=== PATIENT | male | born 1970 | race Caucasian/White ===

== ENCOUNTER 2017-08-07 16:44 | Emergency (ER) | payer SELFPAY ==
[~2017-08-07] VITALS: Ht 175.3 cm; Wt 93.0 kg
[2017-08-07] MEDS ORDERED: HYDROmorphone 2 MG/ML VIAL ONE (17:59)
[2017-08-07] MEDS ORDERED: HYDROmorphone 2 MG/ML VIAL IV ONE (18:15)
--- NOTE | 2017-08-07 18:16 | PHYS DOC ---
Past Medical History Past Medical History: Other Additional Past Medical Histor: heart murmur Past Surgical History: Other Additional Past Surgical Histo: ankle,hernia Alcohol Use: Occasionally Drug Use: None Adult General Chief Complaint Chief Complaint: PUNCTURE WOUND HPI HPI Patient is a 46 year old male who presents with puncture wound to his left hand. He is right-hand dominant was using a electric drill. He had a Gillis drill bit and he was using his left hand to support a board he slipped and the drill went into his left hand. It struck on the palmar aspect at the thumb side. He states he's had continued pain and has pain moving his thumb. This happened at 1545 PM. His tetanus is up to date was 4 years ago. Does not have a personal physician he states. This was an injury occurring in the home. Review of Systems Review of Systems Musculoskeletal: POS hand pain Integument: POS wound Neurologic: No numbness Current Medications Current Medications Current Medications Medications (Trade) Dose Ordered Sig/Jose Alberto Start Time Stop Time Status Last Admin Dose Admin Hydromorphone HCl (Dilaudid) 1 mg 1X ONCE 08/07/17 18:15 08/07/17 18:16 DC 08/07/17 18:11 1 MG Lidocaine HCl (Xylocaine-Mpf 1% Vial) 2 ml 1X ONCE 08/07/17 18:45 08/07/17 18:54 DC Lidocaine/Sodium Bicarbonate (Buffered Lidocaine 1%) 20 ml 1X ONCE 08/07/17 19:00 08/07/17 19:01 DC 08/07/17 18:55 20 ML Allergies Allergies Allergies Coded Allergies Type Severity Reaction Last Updated Verified Fish Containing Products Allergy Intermediate swelling 01/06/15 No aspirin Allergy Intermediate swelling 01/06/15 No shellfish derived Allergy Intermediate swelling 01/06/15 No Physical Exam Physical Exam Constitutional: Well developed, well nourished, no acute distress, non-toxic appearance. Skin: Puncture wound to left palm on the thenar eminence. This is on the proximal hand portion. Extremities: Left hand: There is a puncture wound, no active bleeding to the thenar eminence. He has pain around the thenar eminence with some slight swelling. There is no discernible foreign body palpable or visually seen. He has pain with motion of the thumb. He is neurovascularly intact distally. Normal capillary refill. Normal sensation. He does have movement intact. Neurologic: Alert and oriented X 3, normal motor function, normal sensory function, no focal deficits noted. Psychologic: Affect normal, judgement normal, mood normal. Current Patient Data Vital Signs Vital Signs Date Time Temp Pulse Resp B/P (MAP) Pulse Ox O2 Delivery O2 Flow Rate FiO2 08/07/17 19:33 94 20 134/63 (86) 99 Room Air 08/07/17 16:51 98.0 98.0 Radiology/Procedures Radiology/Procedures Left hand xray interpreted by myself at 1900 PM: no fracture; no FB seen. Course & Med Decision Making Course & Med Decision Making Vital patient. Informed patient that he is high risk for injury. He Needs Follow -Up. Please See Procedure Note regarding Wound Care. Dragon Disclaimer Dragon Disclaimer This electronic medical record was generated, in whole or in part, using a voice recognition dictation system. Departure Departure Impression: Primary Impression: Puncture wound of hand, left Disposition: 01 HOME, SELF-CARE Condition: STABLE Referrals: NO PCP (PCP) Patient Instructions: Puncture Wound Additional Instructions: THESE INJURIES ARE HIGH RISK FOR RETAINED FOREIGN BODY THAT IS TOO SMALL OR BURIED DEEP FOR US TO SEE IN THE ER. YOU NEED CLOSE FOLLOW UP. MONITOR THE SKIN ; IF YOU DEVELOP REDNESS; DRAINAGE OR INCREASE PAIN YOU MUST BE SEEN IMMEDIATELY. LACK OF FOLLOW UP CAN RESULT IN PERMANENT HAND DAMAGE AND LIFELONG DISABILITY. Scripts Doxycycline Hyclate (DOXYCYCLINE HYCLATE) 100 Mg Capsule 1 CAP PO BID, #14 CAP Prov: RAMIRO MOROCHO MD 08/07/17 PROCEDURE Procedure Laceration repair: Consent obtained. Wound prepped and draped in a sterile manner. 1% lidocaine; plain and buffered used to anesthetize the wound. Wound explored. No foreign body noted. Wound irrigated well and well cleansed. After anesthetizing the wound patient was able to move his thumb freely without difficulty. No suture as small puncture wound. Problem Qualifiers Primary Impression: Puncture wound of hand, left Encounter type: initial encounter Foreign body presence: without foreign body Qualified Codes: S61.432A - Puncture wound without foreign body of left hand, initial encounter RAMIRO MOROCHO MD Aug 07, 2017 18:16
[2017-08-07] MEDS ORDERED: LIDOCAINE 1% PF 2 ML VIAL. INJ ONE (18:45)
[2017-08-07] MEDS ORDERED: LIDOCAINE 1% / SOD BICARB 8.4% 20 ML VIAL. IJ ONE ×2 (18:47→19:00)
[2017-08-07] MEDS ORDERED: DOXY100C2 PO (19:24)
[2017-08-07 19:33] VITALS: BP 134/63
--- NOTE | 2017-08-08 08:19 | RAD ---
Indication: Left hand pain after injury today. Power drill puncture in the region of the first metacarpal. Technique: 3 views of the left hand are submitted for review. Marker was placed at the area of concern. Findings: There is soft tissue swelling in the first digit. There is no fracture or dislocation. There is no definite radiopaque foreign body. Impression: Negative for radiopaque foreign body.
== END 2017-08-07 19:45 | disposition home or self-care (01) ==
LOC: ER 16:44
DX: S61.432A Puncture wound without foreign body of left hand, initial encounter (principal); Z88.6 Allergy status to analgesic agent; Z91.013 Allergy to seafood; W29.8XXA Contact with other powered hand tools and household machinery, initial encounter; Y93.89 Activity, other specified; Y99.8 Other external cause status; Y92.89 Other specified places as the place of occurrence of the external cause
CPT/HCPCS: 73130; 96372; 96374; 99284; J1170

== ENCOUNTER 2020-08-30 16:03 | Emergency (ER) | payer OTHER ==
[~2020-08-30] VITALS: Ht 175.3 cm; Wt 105.0 kg
[~2020-08-30 16:03] MED LIST: BENZ100C PO; DOXY100C2 PO
[2020-08-30] MEDS ORDERED: IV NORMAL SALINE 1000ML BAG 1,000 ML IV SCH (16:29)
[2020-08-30] MEDS ORDERED: MORPHINE SULFATE 4 MG/ML VIAL. IV/SQ PRN (16:30)
[2020-08-30] MEDS ORDERED: ONDANSETRON PF 4 MG/2 ML VIAL. IVP ONE (16:30)
[2020-08-30] MEDS ORDERED: 0.9 % SODIUM CHLORIDE 10 ML DISP.SYRIN. IV PRN (16:30)
[2020-08-30 16:38] LABS: BASO # 0.1 x10^3/uL (0.0-0.2); BASO % 1 % (0-3); EOS # 0.1 x10^3/uL (0.0-0.7); EOS % 1 % (0-3); HEMATOCRIT 46.5 % (39.0-53.0); HEMOGLOBIN 16.1 g/dL (13.0-17.5); LYMPH # 2.2 x10^3/uL (1.0-4.8); LYMPH % 21 % (24-48); MEAN CORPUSCULAR HEMOGLOBIN 30 pg (25-35); MEAN CORPUSCULAR HGB CONC 35 g/dL (31-37); MEAN CORPUSCULAR VOLUME 87 fL (79-100); MONO # 0.8 x10^3/uL (0.0-1.1); MONO % 7 % (0-9); NEUT # 7.4 x10^3/uL (1.8-7.7); NEUT % 70 % (31-73); PLATELET COUNT 261 x10^3/uL (140-400); RED BLOOD COUNT 5.36 x10^6/uL (4.30-5.70); WHITE BLOOD COUNT 10.6 x10^3/uL (4.0-11.0)
[2020-08-30 16:47] LABS: PROTHROMBIN TIME PATIENT 12.8 SEC (11.7-14.0)
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
[2020-08-30 16:59] LABS: CALCIUM 9.3 mg/dL (8.5-10.1); CREATININE 1.5 mg/dL (0.7-1.3); GFR 50.2; POTASSIUM 4.5 mmol/L (3.5-5.1)
[2020-08-30 17:10] LABS: ALBUMIN 3.9 g/dL (3.4-5.0); ALBUMIN/GLOBULIN RATIO 1.1 (1.0-1.7); TOTAL BILIRUBIN 0.3 mg/dL (0.2-1.0); TOTAL PROTEIN 7.5 g/dL (6.4-8.2)
[2020-08-30] MEDS ORDERED: IOHEXOL 350 MG/ML 100 ML VIAL. IV ONE (17:15)
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
[2020-08-30 18:35] LABS: BARBITURATES NEG (NEG); BENZODIAZEPINES NEG (NEG); CANNABINOIDS NEG (NEG); COCAINE NEG (NEG); METHADONE NEG (NEG); OPIATES POS (NEG); PHENCYCLIDINE NEG (NEG)
[2020-08-30 18:37] LABS: BILIRUBIN,URINE NEGATIVE (NEG); CLARITY,URINE CLEAR; COLOR,URINE YELLOW; NITRITE,URINE NEGATIVE (NEG); PROTEIN,URINE NEGATIVE (NEG-TRACE); UROBILINOGEN,URINE 0.2 mg/dL (0.2 mg/dL)
[2020-08-30 18:42] LABS: BACTERIA,URINE 0 /HPF (0-FEW); RBC,URINE 0 /HPF (0-2); WBC,URINE 0 /HPF (0-4)
[2020-08-30 18:51] LABS: AMPHETAMINE/METHAMPHETAMINE NEG (NEG)
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
[2020-08-30] MEDS ORDERED: HYDR-3164 PO (19:32)
[2020-08-30 19:43] VITALS: BP 141/89
== END 2020-08-30 19:51 | disposition home or self-care (01) ==
LOC: ER 16:03
DX: S80.11XA Contusion of right lower leg, initial encounter (principal); S70.01XA Contusion of right hip, initial encounter; N28.9 Disorder of kidney and ureter, unspecified; M54.5 Low back pain; F17.200 Nicotine dependence, unspecified, uncomplicated; V47.5XXA Car driver injured in collision with fixed or stationary object in traffic accident, initial encounter; Y92.488 Other paved roadways as the place of occurrence of the external cause; Y93.89 Activity, other specified; Y99.8 Other external cause status
CPT/HCPCS: 36415; 71045; 72131; 72192; 73502; 73552; 73706; 80053; 80307; 81001; 85025; 85610; 85730; 96361; 96374; 96375; 99285; G0480; J2270; J2405; J7030; Q9967